=== PATIENT | female | born 1935 | race Caucasian/White ===

== ENCOUNTER 2016-08-20 12:21 | Emergency (ER) | payer MEDICARE, OTHER ==
[~2016-08-20] VITALS: Ht 157.5 cm; Wt 54.4 kg
[2016-08-20 13:40] VITALS: BP 130/69
[2016-08-20] MEDS ORDERED: traMADol HCL 50 MG TAB PO ONE (14:15)
[2016-08-20 14:56] LABS: Partial Thromboplastin Time 27.1 sec (22.64-33.71)
[2016-08-20 15:00] LABS: INR 1.49 (0.9-1.15); Prothrombin Time 15.3 sec (9.37-12.3)
== END 2016-08-20 15:31 | disposition home or self-care (01) ==
LOC: ER 12:21 → EDBD 12:21 → ER 15:31
DX: S46.911A Strain of unspecified muscle, fascia and tendon at shoulder and upper arm level, right arm, initial encounter (principal); S00.03XA Contusion of scalp, initial encounter; S20.211A Contusion of right front wall of thorax, initial encounter; I10 Essential (primary) hypertension; E78.5 Hyperlipidemia, unspecified; Z90.89 Acquired absence of other organs; Z90.710 Acquired absence of both cervix and uterus; Z95.0 Presence of cardiac pacemaker; Z88.2 Allergy status to sulfonamides; V49.59XA Passenger injured in collision with other motor vehicles in traffic accident, initial encounter; Y93.89 Activity, other specified; Y99.8 Other external cause status; Y92.410 Unspecified street and highway as the place of occurrence of the external cause
CPT/HCPCS: 36415; 70450; 71250; 73030; 85610; 85730